=== PATIENT | female | born 1935 | race Caucasian/White ===

== ENCOUNTER 2016-10-31 10:58 | Emergency (ER) | payer OTHER ==
[2016-10-31 11:10] VITALS: BP 141/56
--- NOTE | 2016-10-31 12:02 | PROVIDER DOCUMENTATION ---
HPI-Rash/Wound/ReCheck - General Chief Complaint: Suture/Staple Removal Stated Complaint: NEEDS STAPLE REMOVED Time Seen by Provider: 10/31/16 11:58 Source: patient Allergies/Adverse Reactions: Allergies Allergy/AdvReac Type Severity Reaction Status Date / Time amoxicillin trihydrate * AdvReac Severe NAUSEA/VOMI Verified 07/09/14 09:19 [From Augmentin] TING potassium clavulanate * AdvReac Severe NAUSEA/VOMI Verified 07/09/14 09:19 [From Augmentin] TING codeine AdvReac Mild NAUSEA Verified 10/16/16 19:44 Home Medications: Gabapentin [Neurontin] 300 mg PO BID 07/14/13 PRAVAstatin [Pravachol] 40 mg PO DAILY 07/14/13 Pramipexole [Mirapex] 0.25 mg PO BID 07/14/13 - History of Present Illness-Dermatology Nature of Presenting Problem: 81 y/o WF here for one staple removed. Fell 5 days ago, minor head lac. No complications. Denies fevers or chills. Review of Systems - Adult - REVIEW OF SYSTEMS - ADULT Constitutional: reports: no symptoms reported. denies: chills, fever, fatique Eyes: reports: no symptoms reported. denies: double vision, eye pain Ears, Nose, Mouth & Throat: reports: no symptoms reported. denies: ear pain, nose pain, throat pain Cardiovascular: reports: no symptoms reported. denies: chest pain, palpitations Respiratory: reports: no symptoms reported. denies: cough, shortness of breath Gastrointestinal: reports: no symptoms reported. denies: abdominal pain, nausea Genitourinary: reports: no symptoms reported. denies: incontinence Musculoskeletal: reports: no symptoms reported. denies: muscle aches Integumentary: reports: no symptoms reported. denies: rash Neurological: reports: no symptoms reported. denies: headache/migraines Psychiatric: reports: no symptoms reported Endocrine: reports: no symptoms reported Hematologic/Lymphatic: reports: no symptoms reported Allergic/Immunologic: reports: no symptoms reported All Other Systems: Reviewed and Negative Past History - Adult - PAST MEDICAL HISTORY-ADULT Review of Records: reports: Old Records Reviewed, Nursing Assessment Review, Medications Reviewed Major Childhood Illnesses: reports: denies history Cardiovascular: reports: hyperlipidemia Respiratory: reports: denies history Gastrointestinal: reports: denies history Obstetrical/Gynecological: reports: denies history Genitourinary: reports: denies history Musculoskeletal: reports: denies history Neurological: reports: denies history Endocrine/Immune: reports: denies history Other Conditions: reports: denies history - PRIOR SURGERIES/PROCEDURES Surgical/Procedure History: reports: orthopedic (extremity) (right foot Sx, and shoulder Sx), 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), back/ neck (back Sx) - IMMUNIZATION STATUS Childhood Immunizations: UTD Flu Vaccine: UTD - FAMILY HISTORY Family History: reviewed, not pertinent Physical Exam-General - PHYSICAL EXAM-ADULT Initial Vital Signs Reviewed: Yes - CONSTITUTIONAL General Appearance: appears well, alert, no apparent distress - EYES Eyes: PERRL/EOMI, pink conjunctivae - HEAD, EARS, NOSE, MOUTH & THROAT HENMT: normocephalic/atraumatic, moist mucous membranes, normal ENT inspection, other (1 staple in the occipital region of head) - NECK Neck: non-tender, full range of motion, normal inspection - RESPIRATORY Respiratory: chest non-tender, lungs clear, normal breath sounds - CARDIOVASCULAR Cardiovascular: normal peripheral pulses, regular rate, rhythm, no edema - MUSCULOSKELETAL Extremity: normal gait - SKIN Integumentary: normal color, normal turgor, warm/dry - NEUROLOGIC Neurologic: grossly normal, no motor/sensory deficits - PSYCHIATRIC Psych/Mental Status: normal mood/affect, normal thought content, normal thought process, oriented x 3 Progress - PLAN OF CARE/RESULTS Progress/Plan/Lab Results: Vital Signs Temp Pulse Resp BP Pulse Ox 10/31/16 11:07 98.0 F 64 16 141/56 100 amoxicillin trihydrate * [From Augmentin] Adverse Reaction (Severe, Verified 10/10 09:19) NAUSEA/VOMITING potassium clavulanate * [From Augmentin] Adverse Reaction (Severe, Verified 10/10 09:19) NAUSEA/VOMITING codeine Adverse Reaction (Mild, Verified 10/16/16 19:44) NAUSEA Gabapentin [Neurontin] 300 mg PO BID 07/14/13 PRAVAstatin [Pravachol] 40 mg PO DAILY 07/14/13 Pramipexole [Mirapex] 0.25 mg PO BID 07/14/13 Calcium Carbonate Chew [Tums] 1,000 mg PO Q4H PRN PRN #0 tab.chew 07/17/13 Levofloxacin [Levaquin] 500 mg PO DAILY #0 tablet 07/17/13 Metronidazole [Flagyl] 250 mg PO TID #0 tablet 07/17/13 Mirtazapine [Remeron] 7.5 mg PO HS PRN PRN #0 tablet 07/17/13 Olmesartan [Benicar] 20 mg PO QAM #0 tablet 07/17/13 Omeprazole [Prilosec] 20 mg PO DAILY #0 capsule 07/17/13 Ondansetron HCl [Zofran] 4 mg PO Q8HR PRN #20 tablet 10/16/16 Tramadol [Ultram] 50 mg PO Q8HR #20 tablet 10/16/16 1 staple removed Departure - Departure Time of Disposition Order: 12:01 DIAGNOSIS: Removal of staple Disposition: HOME 01 Certified Medical Emergency: Emergent Condition: Stable Additional Instructions: ED Follow Up Instructions: You have been treated by a care provider in the Emergency Department. These instructions are being provided to you so you can have an understanding of how to care for yourself upon discharge. Upon discharge from the Emergency Department, you are responsible for making arrangements for follow-up care by a physician of your choice. Take all prescribed medications as directed. Return to the Emergency Department immediately for any new or worsening symptoms. You may call the Physician Referral phone number at [phone] to obtain a list of Physicians who are taking new patients. Referrals: Goldy Dempsey MD [Primary Care Provider] - Attestation - Physician/ Mid-level Attestation Patient care was provided by Mid-level provider (TRAINING SPECIALIST/PA):: Yes Mid-level provider:: Krystal Cid Mid-level documentation review:: The Mid-level provider documentation, treatment plan and medical decision making was reviewed by the physician who agrees with all treatment and medical decision making by the P.
== END 2016-10-31 12:20 | disposition home or self-care (01) ==
LOC: ED 10:58
DX: Z48.02 Encounter for removal of sutures (principal); S01.91XD Laceration without foreign body of unspecified part of head, subsequent encounter; E78.5 Hyperlipidemia, unspecified; Z96.659 Presence of unspecified artificial knee joint; Z96.649 Presence of unspecified artificial hip joint; W19.XXXD Unspecified fall, subsequent encounter; Z79.899 Other long term (current) drug therapy
CPT/HCPCS: 99282